=== PATIENT | female | born 1970 | race Caucasian/White ===

== ENCOUNTER → 2018-08-17 | Outpatient (CLI) | payer OTHER ==
[~2018-08-17] MED LIST: ACETAMINOPHEN650 M5 PO; ALPRAZOLAM; AMBIEN 10 MG TA10 MG PO; ATIVAN0.5 MG; AUGMENTIN 875875 M1 PO; AUGMENTIN 875875 MG PO; BREO ELLIPTA 21 EACH; CEFUROXIME500 MG PO; COLACE100 MG PO; DESYREL50 MG PO; LISINOPRIL PO; LITHIUM CARBON300 M3 PO; MOBIC15 MG PO; NORCO 5-325 TA1 EAC1 PO; NORCO 5-325 TA1 EACH; PREDNISONE 10 M10 MG PO; PROAIR HFA8.5 GM PO; PROMETH-CODEIN 65 ML PO; PROZAC; SYNTHROID125 MC1 PO; TRAMADOL 50 MG50 MG PO; VENTOLIN HFA INH8 GM; VICODIN 5-5001 EACH PO; XANAX XR1 MG PO
--- NOTE | ~2018-08-17 | PAINCON ---
[address] [address] PAIN MANAGEMENT CONSULTATION Name: KELLEY MIRELES Room: [facility] DELISA Nixon#: [id number] Admission: 08/17/18 Attend Phys: Christopher Lozano MD Discharge: Date of : 72 Report #: [id number] THIS REPORT FOR: //name// CC: Chemo Reddy DATE OF SERVICE: 08/17/2018 CHIEF COMPLAINT: Constant aching pain in the neck. HISTORY OF PRESENT ILLNESS: The patient is a 47-year-old female who has been referred to the pain clinic. She has continued to have pain and discomfort which she finds quite problematic. It involves her neck area. She states that she has had pain, which has been quite problematic since early this year. She has tried tramadol and other nonsteroidal anti-inflammatory medication as well as a Depo-Medrol injection. In spite of all of these measures, her neck pain has continued to be problematic. She is having more severe pain with cervical radiculopathy at this point. Reports that both hands are becoming numb at certain times. She has noticed increased neck and shoulder pain. She has not had neck surgery. Denies any trauma to the area. States that it feels like someone beat me with a baseball bat continuously for a year. Notes that everyday activities are more problematic. Sleeping can be problematic. She feels that physical therapy helps some with her motion, but the pain continues to be problematic and has not improved significantly. Describes as a constant, aching, crushing, throbbing and tender. Rates it as a 9/10 at this juncture. Has not noticed a significant improvement with [id number] nonsteroidal anti-inflammatory medications. She has had an MRI, which showed some changes in her neck. The patient has some pain in her left leg as well. She has had pins placed in this. She occasionally notices a charley horse in her left foot. Also, has had some pain and discomfort in the right knee. Questionable whether or not she has had a Contreras cyst. The patient underwent physical therapy, which was somewhat limited. ALLERGIES: IBUPROFEN INTOLERANCE. CURRENT MEDICATIONS: Albuterol 2 puffs q.6 hours p.r.n., Breo 200/25 inhale by mouth, levothyroxine 125 mcg, Mobic 15 mg, Ultram 50 mg q.6 hours p.r.n., Medrol Dosepak/prednisone taper. PAST MEDICAL HISTORY: Cervical neck pain, asthma, pneumonia two times, bipolar, hypertension, hypothyroidism, history of cat scratch fever from a bite in 2006. PAST SURGICAL HISTORY: ORIF right leg in 1989, tubal ligation in 2007, [place] [address] PAIN MANAGEMENT CONSULTATION Name: KELLEY MIRELES [id number] Admission: 08/17/18 Attend Phys: Christopher Lozano MD Discharge: Date of : 72 Report #: [id number] in 1991 and 1999, laser for endometriosis in 2014, ovarian cyst ablation in 2009. DISCONTINUED MEDICATIONS: Xanax XR 1 mg b.i.d., lisinopril 10 mg, lithium carbonate ____ 900 mg daily. 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 She is working at this juncture. REVIEW OF SYSTEMS: Generally good health, fatigue, weakness, headaches, wears glasses, sore throat, swollen glands, chronic cough, shortness of breath, asthma, frequent diarrhea, painful bowel movements/constipation, joint pain, weakness of muscles and joints, back pain, difficulty walking, frequent recurrent headaches, lightheadedness, dizziness, numbness and tingling sensation in her arm, insomnia, easy bruising. LABORATORY DATA: 1. MRI of the cervical spine dated 06/11/2018, left-sided uncovertebral joint degenerative change at the C3-C4 level with mild reactive edema. This causes minimal left foraminal tapering at this level without impingement on the canal. 2. Minimal right foraminal tapering present from the disk bulge at C4/C5 without impingement on the canal. PAIN CLINIC ASSESSMENT/PQRS: 1. History of osteoarthritis. The patient is not being treated for osteoarthritis or rheumatoid arthritis. 2. Height 5 feet 5 inches. Weight 180 pounds, BMI is 30. 3. Vital Signs: Blood pressure 127/80, heart rate 82, respiratory rate 18, room air saturation 97%, temperature 98.0. 4. Pain intensity 7/10. 5. Fall risk. The patient has not fallen in the last 3 months. 6. Blood thinner. The patient is not on a blood thinning medication. 7. Hypertension. The patient has a history of hypertension. 8. Opioid therapy greater than 6 weeks. The patient is not on an opioid regimen at this juncture. 9. Risk assessment tool, moderate for opioid use. 10. Functional assessment tool. 11. Recreational drug use. The patient denies use of recreational drugs. 12. Tobacco: The patient denies use of tobacco at this juncture. 13. Alcohol: The patient denies frequent use of alcoholic beverages. PHYSICAL EXAMINATION: GENERAL: The patient is a well-developed, well-nourished white female who appears her stated age. She is alert and oriented x 3. Affect is appropriate. Speech is fluent. HEENT: Normocephalic, atraumatic. Extraocular eye [place] [address] PAIN MANAGEMENT CONSULTATION Name: KELLEY MIRELES Room: [facility]#: [id number] Admission: 08/17/18 Attend Phys: Christopher Lozano MD Discharge: Date of : 72 Report #: [id number] nonicteric. There is no push of speech. The patient has pain and discomfort in the upper neck area with pain and discomfort in the mid back area with pain radiating down into the left forearm with numbness and tingling down into her hands and fingers. HEART: Regular rate. NECK: Without JVD or adenopathy. CHEST: Clear to auscultation. ABDOMEN: Nontender. EXTREMITIES: The patient's muscle strength in the left arm 5-/5, right arm 5/5 for the upper extremity area. The patient has pain and discomfort in the area of the left shoulder near the scapula. Deep tendon reflexes are +2 on the right side and +2 on the left. The patient without significant scoliosis, kyphosis or lordosis. Forward bending to 90 degrees. Toe rise and heel rise were not problematic. Left and right leaning were not problematic. Left and right rotation cause some increased discomfort on the left. Lumbar extension caused some increased pain in the neck area. Deep tendon reflexes are +2 at the knees. Deep tendon reflexes are +2 for the ankles. The patient has some sensory change in the left lower extremity. Trigger point is noted in the left occipital area. IMPRESSION: 1. Cervical radiculopathy involving the right arm with numbness and sensory changes down in the left arm and down into her fingers. 2. Cervical neck pain. 3. Asthma. 4. Pneumonia two times. 5. Bipolar. 6. Hypertension. 7. Hypothyroidism. 8. History of cat scratch fever from a bite. RECOMMENDATIONS: We discussed treatment options with the patient. At this juncture, we will consider a cervical epidural steroid injection. The patient has sensory changes. She has noted pain and discomfort, which has been problematic since about 12/2017. She has undergone physical therapy. Has tried nonsteroidal anti-inflammatory medication and still has pain, which is problematic. The risks and benefits of an epidural steroid injection were discussed with the patient. A model was used to indicate the area of probable pathology. Her MRI was reviewed. She will return to the pain clinic, at which time, she will consider a cervical [place] [address] PAIN MANAGEMENT CONSULTATION Name: KELLEY MIRELES [facility] [id number] Admission: 08/17/18 Attend Phys: Christopher Lozano MD Discharge: Date of : 72 Report #: [id number] We would like to thank you for letting us participate in her care. We hope she continues to improve. By: [id number]. Nate Lozano MD /jhon
== END ==
LOC: M.PC 08-03 11:20
DX: M54.12 Radiculopathy, cervical region (principal); R20.0 Anesthesia of skin; J45.909 Unspecified asthma, uncomplicated; I10 Essential (primary) hypertension; E03.9 Hypothyroidism, unspecified; J18.9 Pneumonia, unspecified organism; F31.9 Bipolar disorder, unspecified; A28.1 Cat-scratch disease

== ENCOUNTER → 2018-09-07 | Outpatient (CLI) | payer OTHER ==
--- NOTE | ~2018-09-07 | PAINCON ---
[address] [address] PAIN MANAGEMENT CONSULTATION Name: KELLEY MIRELES Room: [facility] DENISE Hussain#: [id number] Admission: 09/07/18 Attend Phys: Christopher Lozano MD Discharge: Date of : 72 Report #: [id number] THIS REPORT FOR: //name// CC: Chemo Lozano DATE OF SERVICE: 09/07/2018 PRIMARY CARE PHYSICIAN: Chemo Barragan DO CHIEF COMPLAINT: Cervical pain, here for an epidural injection. HISTORY: The patient is a 48-year-old female who has been seen in the pain clinic because of cervical radiculopathy. She is having pain that is problematic. It radiates down into her left shoulder involving her arm down into the forearm and with numbness and tingling down into her fingers. Notes that the pain has been problematic and the patient has tried conservative measures such as tramadol and other nonsteroidal anti-inflammatory medications. In spite of that, she continues to have pain, which has been problematic. She describes it as severe and is having numbness and tingling down in her hands. Denies any trauma. Has not had neck surgery. She sometimes feels as though she has been beaten on the back of the neck with a baseball bat. Describes her pain as 4-5/10 at this juncture. She has returned to the pain clinic for an injection. ALLERGIES: IBUPROFEN intolerance. CURRENT MEDICATIONS: Albuterol 2 puffs q. 6 hours p.r.n., Breo 200/25 inhaled by mouth, levothyroxine 125 mcg, Mobic 15 mg, Ultram 50 mg q.6 hours, Medrol dosepak/prednisone taper in the past. PAIN CLINIC EVALUATION/PQRS: 1. History of osteoarthritis. The patient is not being treated for osteoarthritis or rheumatoid arthritis. 2. Height 5 feet 5 inches, weight 180 pounds, BMI is 31. 3. Vital signs: Blood pressure 128/72, heart rate 81, respiratory rate 16, room air saturation 96%, temperature 98.2. 4. Pain score 4-5/10. 5. Fall history. The patient has not fallen in the last 3 months. 6. Blood thinner. The patient is not on a blood thinning medication. 7. Hypertension. The patient is being treated for hypertension. 8. Opioids greater than 6 weeks. The patient is not on a regular opioid regimen, but is taking tramadol. 9. Functional assessment tool. 10. Risk assessment tool moderate for opioid use. 11. Recreational drug use. The patient denies [place] [address] PAIN MANAGEMENT CONSULTATION Name: KELLEY MIRELES Room: [facility] Hussain#: [id number] Admission: 09/07/18 Attend Phys: Christopher Lozano MD Discharge: Date of : 72 Report #: [id number] 12. Tobacco: The patient denies use of tobacco. 13. Alcohol: The patient denies use of alcoholic beverages. PHYSICAL EXAMINATION: GENERAL: The patient is a well-developed, well-nourished white female. Appears her stated age. She is alert and oriented x 3. Her affect is appropriate. Speech is fluent. HEENT: Normocephalic, atraumatic. Extraocular eye muscles intact. Sclerae not icteric. Mucous membranes are moist. NECK: Without adenopathy or JVD. The patient has some pain and discomfort that is radiating down into her hand on the left side in her shoulder. Numbness in her left arm. Has had complaints of headaches. The patient notes pain and tingling down into her hands and fingers. HEART: Regular rate. NECK: Without JVD or adenopathy. CHEST: Clear to auscultation. ABDOMEN: Nontender. Bowel sounds present. EXTREMITIES: Upper extremity, left muscle strength judged 5-/5, right upper extremity 5/5. The patient has some pain and discomfort in her left leg. The patient has had some sensory changes in the past in her left lower extremity. The patient also complained of some headaches in the past. Has had some trigger points noted in the occipital areas. IMPRESSION: 1. Cervical radiculopathy involving the right arm with numbness and tingling, sensory changes in the left arm and down into her fingers. 2. Cervical neck pain. 3. Asthma. 4. Pneumonia x 2. 5. Bipolar. 6. Hypertension. 7. Hypothyroidism. 8. History of cat scratch fever from a bite. RECOMMENDATIONS: We discussed treatment options with the patient. Risks and benefits of an epidural steroid injection were discussed. They include but are not limited to infection, worsening pain, no improvement in pain, spinal headache, paralysis. The patient elects to proceed. PROCEDURE NOTE: The patient was taken to the procedure area. She was assisted in getting on the examination table. A pillow was placed on her arms for post-treatment improve positioning. Her neck was sterilely prepped with a Betadine solution. Fluoroscopy using anterior, posterior as well as lateral viewing were implemented. A 17-gauge Tuohy with loss of resistance technique was used to gain access to the epidural space using a left paramedian approach to the ____. After appropriate placement of needle. Aspiration was negative. [facility] [address] [address] PAIN MANAGEMENT CONSULTATION Name: KELLEY MIRELES Room: [facility] Nixon#: [id number] Admission: 09/07/18 Attend Phys: Christopher Lozano MD Discharge: Date of : 72 Report #: [id number] Total of 120 mg triamcinolone was injected. The patient tolerated the procedure well. She remained in the Pain Clinic for an appropriate amount of time. There were no complications. Total of 17 seconds fluoroscopy time was used. We would like to thank you for letting us participate in her care. We hope she continues to improve. By: [id number]. Nate Lozano MD /[place]OR[place]
== END | disposition home or self-care (01) ==
LOC: M.PC 13:40
DX: M54.12 Radiculopathy, cervical region (principal); I10 Essential (primary) hypertension; E03.9 Hypothyroidism, unspecified; J45.909 Unspecified asthma, uncomplicated; F31.9 Bipolar disorder, unspecified; Z87.01 Personal history of pneumonia (recurrent); Z88.8 Allergy status to other drugs, medicaments and biological substances; Z79.899 Other long term (current) drug therapy; Z98.890 Other specified postprocedural states

== ENCOUNTER → 2018-10-12 | Outpatient (CLI) | payer OTHER ==
--- NOTE | ~2018-10-12 | PAINCON ---
[address] [address] PAIN MANAGEMENT CONSULTATION Name: KELLEY MIRELES Room: [facility] DELISA Nixon#: [id number] Admission: 10/12/18 Attend Phys: Christopher Lozano MD Discharge: Date of : 72 Report #: [id number] THIS REPORT FOR: //name// CC: Dr. Chemo Lozano DATE OF SERVICE: 10/12/2018 PRIMARY CARE PHYSICIAN: Dr. Chemo Barragan. CHIEF COMPLAINT: Here for a cervical epidural steroid injection. HISTORY OF PRESENT ILLNESS: The patient is a 48-year-old female who has been seen in the pain clinic because of cervical radiculopathy. She has undergone epidural steroid injections and gleaned greater than 50% improvement. She has returned today for another injection. She has noted an improvement in her left arm pain and the numbness that was present. Also, has some pain and discomfort in her left leg. Had some pain at the base of her skull that radiates up from her neck. She had no complication from the last injection. Continues to use tramadol and other nonsteroidal anti-inflammatory medications. Denies any trauma. She has not had neck surgery. ALLERGIES: IBUPROFEN INTOLERANCE. CURRENT MEDICATIONS: Albuterol 2 puffs q.6 hours, Breo 200/25 inhaler by mouth, levothyroxine 125 mcg, Mobic 15 mg, Ultram 50 mg q.6 hours, Medrol dosepak/prednisone taper in the past. PAIN CLINIC ASSESSMENT AND PQRS: 1. The patient is not being treated for osteoarthritis or rheumatoid arthritis. 2. Height 5 feet 5 inches, weight 184 pounds, BMI is 30. 3. Vital Signs: Blood pressure 149/90, heart rate 88, respiratory rate 16, room air saturation 96%, temperature 98.2. 4. Pain intensity, 4-5/10. 5. Fall history: The patient has not fallen in the last 3 months. 6. Blood thinner. The patient is not on a blood thinning medication. 7. Hypertension. The patient is being treated for hypertension. 8. Opioid greater than 6 weeks. The patient is not on opioid regimen, but does take tramadol. 9. Functional assessment tool. 10. Recreational drug use. The patient denies use of recreational drugs. 11. Risk assessment tool, low for opioid use. 12. Tobacco: The patient denies use of tobacco. 13. Alcohol: The patient [place] [address] PAIN MANAGEMENT CONSULTATION Name: KELLEY MIRELES Room: [facility]#: [id number] Admission: 10/12/18 Attend Phys: Christopher Lozano MD Discharge: Date of : 72 Report #: [id number] PHYSICAL EXAMINATION: GENERAL: The patient is a well-developed, well-nourished, white female. Appears her stated age. She is alert and oriented x 3. Her affect is appropriate. Speech is fluent. HEENT: Normocephalic, atraumatic. Extraocular eye muscles intact. NECK: Without adenopathy or JVD. The patient has some pain and discomfort in the occipital area with radiation into that area from her neck. Has some numbness and tingling in her left arm, which has improved. Less numbness and tingling down in her hands and fingers. HEART: Regular rate. S1, S2. NECK: Without adenopathy or JVD. LUNGS: Clear to auscultation without rhonchi or rales. ABDOMEN: Nontender. Bowel sounds present. EXTREMITIES: Upper extremity muscle strength judged to be 5-/5 for the left upper extremity and 5/5 muscle strength for the right upper extremity. The patient has some discomfort in the occipital area. Also, has some pain and discomfort in her left leg. Notes some sensory changes in her left lower extremity. IMPRESSION: 1. Cervical radiculopathy involving the right arm and note of numbness and tingling as well as sensory changes in the left arm with pain tingling down into the left fingers. 2. Cervical neck pain. 3. Asthma. 4. Pneumonia x 2. 5. Bipolar. 6. Hypertension. 7. Hypothyroidism. 8. History of cat scratch fever from a bite. RECOMMENDATIONS: We discussed treatment options with the patient. Risks and benefits of the procedure were discussed. They could include but are not limited to infection, worsening of pain, no improvement in pain, nerve damage, spinal headache. The patient elects to proceed. PROCEDURE NOTE: The patient was taken to the procedure area. She was assisted in getting on the examination table. A pillow was placed under her shoulder to bolster and improve positioning. Her back was sterilely prepped with a chlorhexidine solution and allowed to dry. Anterior, posterior viewing using fluoroscopy were undertaken. A 0.25% bupivacaine was infiltrated using a 25-gauge needle in the C7-T1 interspace. A 17-gauge Tuohy with loss of resistance technique at the C7-T1 interspace was undertaken. Aspiration was negative. A total of 120 mg triamcinolone was injected. The patient tolerated the procedure well. A total of 18 seconds fluoroscopy time was used. The patient remained in the pain clinic for an appropriate amount of time. She will [address] [place] [address] PAIN MANAGEMENT CONSULTATION Name: KELLEY MIRELES Room: [facility] DELISA Garay.#: [id number] Admission: 10/12/18 Attend Phys: Christopher Lozano MD Discharge: Date of : 72 Report #: [id number] follow up in the future as needed. We would like to thank you for letting us participate in her care. We hope she continues to improve. By: [id number]. Nate Lozano MD /PMT
== END | disposition home or self-care (01) ==
LOC: M.PC 04:02
DX: M54.12 Radiculopathy, cervical region (principal); J45.909 Unspecified asthma, uncomplicated; F31.9 Bipolar disorder, unspecified; I10 Essential (primary) hypertension; E03.9 Hypothyroidism, unspecified; Z98.890 Other specified postprocedural states; F11.20 Opioid dependence, uncomplicated; Z68.30 Body mass index [BMI] 30.0-30.9, adult; Z88.8 Allergy status to other drugs, medicaments and biological substances; Z79.899 Other long term (current) drug therapy

== ENCOUNTER 2020-04-20 19:19 | Emergency (ER) | payer OTHER ==
[~2020-04-20] VITALS: Ht 172.7 cm; Wt 61.2 kg
[2020-04-20] MEDS ORDERED: BACTRIM DS TAB1 EACH PO (20:10)
[2020-04-20] MEDS ORDERED: HYDROCODON-ACE1 EAC8 PO (20:10)
[2020-04-20] MEDS ORDERED: KEFLEX500 M2 PO (20:10)
[2020-04-20 20:23] VITALS: BP 115/65
== END 2020-04-20 20:24 | disposition home or self-care (01) ==
LOC: M.ERS 19:19
DX: L03.115 Cellulitis of right lower limb (principal); J45.909 Unspecified asthma, uncomplicated; I10 Essential (primary) hypertension; Z98.51 Tubal ligation status; Z98.890 Other specified postprocedural states; Z87.01 Personal history of pneumonia (recurrent)